=== PATIENT | male | born 1990 ===

== ENCOUNTER 2018-01-14 14:36 | Emergency (ER) | payer MEDICAID ==
[2018-01-14 14:36] VITALS: BMI 20.3
[2018-01-14 15:37] VITALS: BP 124/85; PULSE 82; RESP 20; TEMP 97.4; O2SAT 100
== END 2018-01-14 16:40 | disposition left against medical advice (07) ==
LOC: C.ER 14:36
DX: Z02.89 Encounter for other administrative examinations (principal); R51 Headache